=== PATIENT | female | born 2000 | race African-American/Black ===

== ENCOUNTER 2020-02-12 08:15 | Inpatient (IN) | payer OTHER ==
[2020-02-12 11:03] LABS: POC NITRAZINE NEG
[2020-02-12] MEDS ORDERED: AMPICILLIN - 2 GM in SODIUM CHLORIDE 100 ML IVPB ONE (12:00)
[2020-02-12] MEDS ORDERED: AMPICILLIN SODIUM 2 GM VIAL ONE (12:15)
[2020-02-12] MEDS ORDERED: PROMETHAZINE HCL 25 MG/1 ML VIAL IVPB ONE ×2 (12:30→14:29)
[2020-02-12] MEDS ORDERED: BUTORPHANOL TARTRATE 1 MG/ML VIAL IVPB ONE ×2 (12:30→14:29)
[2020-02-12 12:53] VITALS: BMI 31.1
[2020-02-12] MEDS ORDERED: PROMETHAZINE HCL 25 MG/1 ML VIAL ONE (12:56)
[2020-02-12] MEDS ORDERED: BUTORPHANOL TARTRATE 1 MG/ML VIAL ONE ×2 (12:56)
--- NOTE | 2020-02-12 14:17 | HP ---
Past Medical History - Primary Care Physician PCP:: Evaristo Moss - Admission Chief Complaint: Lower abdominal pain History of Present Illness: 19 yo , AUDELIA 02/09/20, EGA 40 weeks 3 days, presented in early labor. care at [facility] History Source: Patient Limitations to Obtaining History: No Limitations - Past Medical History ...: 1 ...Para: 0 ...Term: 0 ...: 0 ...Spon : 0 ...Induced : 0 ...Living Children: 0 ...Multiple Gestation: 0 ...LMP: 05/05/19 ... Weeks Gestation by Dates: 40.3 ...EDC by Dates: 02/09/20 ...EDC by Sono: 02/10/20 - Past Surgical History Past Surgical History: Yes: None Hx Myomectomy: No Hx Transabdominal Cerclage: No - Smoking History Smoking history: Never smoked Have you smoked in the past 12 months: No - Alcohol/Substance Use Hx Alcohol Use: No - Social History Do you think of yourself as: Straight/Heterosexual History of Recent Travel: No Home Medications - Allergies Allergies/Adverse Reactions: Allergies Allergy/AdvReac Type Severity Reaction Status Date / Time No Known Drug Allergies Allergy Verified 02/07/20 13:52 shrimp Allergy Hives Verified 02/07/20 13:52 - Home Medications Home Medications: Ambulatory Orders Prenat 115/Iron Fum/Folic/Dss [ 19 Tablet] 1 tab PO DAILY 02/07/20 Family Medical History Family History: Denies Review of Systems - Review of Systems Constitutional: reports: No Symptoms Eyes: reports: No Symptoms HENT: reports: No Symptoms Neck: reports: No Symptoms Cardiovascular: reports: No Symptoms Respiratory: reports: No Symptoms Gastrointestinal: reports: No Symptoms Genitourinary: reports: No Symptoms Breasts: reports: No Symptoms Reported Musculoskeletal: reports: No Symptoms Integumentary: reports: No Symptoms Neurological: reports: No Symptoms Endocrine: reports: No Symptoms Hematology/Lymphatic: reports: No Symptoms Psychiatric: reports: No Symptoms Physical Exam - Maternity Vital Signs: Vital Signs Temperature 98.3 F 02/12/20 12:44 Pulse Rate 76 02/12/20 12:44 Respiratory Rate 18 02/12/20 12:44 Blood Pressure 121/78 02/12/20 12:44 O2 Sat by Pulse Oximetry (%) Constitutional: Yes: Well Nourished Eyes: Yes: WNL HENT: Yes: WNL Neck: Yes: WNL Cardiovascular: Yes: WNL Breast(s): Yes: WNL - Abdominal Exam/OB Fundal Height: 39 Number of Fetuses: Single Presentation: Vertex Contractions: Yes Regularity: Regular Intensity: Mild/Mod Monitor Mode: External Heart Rate (range): 140 Category: I Accelerations: Uniform Decelerations: None - Vaginal Exam/OB Vaginal Bleeding: No Dilatation (cm): 2 Effacement (%): 100 Amniotic Membrane Status: Intact Presentation: Vertex/Position Station: -2 - Physical Exam Musculoskeletal: Yes: WNL Extremities: Yes: WNL Edema: No Integumentary: Yes: WNL ...Motor Strength: WNL Psychiatric: Yes: WNL Hemorrhage Risk Assessment - Risk Factors Medium Risk Factors: Yes: None High Risk Factors: Yes: None Risk Score: 1 Risk Level: Medium Risk Problem List - Problems (1) 40 weeks gestation of Code(s): Z3A.40 - 40 WEEKS GESTATION OF Assessment/Plan Full term gestation in early labor Admit L ad D for management.
[2020-02-12] MEDS ORDERED: LACTATED RINGERS SOLUTION 1,000 ML/1,000 ML INFUS.BAG IV SCH (14:30)
[2020-02-12 14:53] LABS: BASO % 0.4 % (0-2.0); EOS % 0.1 % (0-4.5); HEMATOCRIT 36.2 % (32.4-45.2); HEMOGLOBIN 12.1 GM/dL (10.7-15.3); LYMPH % 12.9 % (8-40); MCH 30.8 pg (25.7-33.7); MCHC 33.4 g/dl (32.0-36.0); MEAN CELL VOLUME 92.3 fl (80-96); MEAN PLT VOLUME 10.6 fl (7.5-11.1); MONO % 8.4 % (3.8-10.2); NEUT % 78.2 % (42.8-82.8); PLATELET COUNT 221 K/MM3 (134-434); RBC 3.92 M/mm3 (3.60-5.2); RDW 15.5 % (11.6-15.6); WHITE BLOOD COUNT 10.5 K/mm3 (4.0-10.0)
[2020-02-12 14:58] LABS: INR 0.84 (0.83-1.09); PROTHROMBIN TIME (PATIENT) 9.9 SEC (9.7-13.0)
[2020-02-12 15:01] LABS: ACTIVATED PTT 29.8 SECONDS (25.2-36.5)
[2020-02-12] MEDS ORDERED: OXYTOCIN 30 UNITS in 0.9% NS 30 UNIT/500 ML INFUS.BAG IVPB ONE (15:09)
[2020-02-12] MEDS ORDERED: OXYTOCIN 30 UNITS in 0.9% NS 30 UNIT/500 ML INFUS.BAG IVPB SCH (15:10)
[2020-02-12 15:14] LABS: BLOOD UREA NITROGEN 3.8 mg/dL (7-18); CALCIUM 9.1 mg/dL (8.5-10.1); CREATININE 0.7 mg/dL (0.55-1.3); POTASSIUM 3.8 mmol/L (3.5-5.1)
[2020-02-12] MEDS ORDERED: AMPICILLIN SODIUM 1 GM VIAL ONE ×2 (16:07→20:29)
[2020-02-12] MEDS: AMPICILLIN - 1 GM in SODIUM CHLORIDE 100 ML IVPB SCH ×2 (16:15→20:26)
[2020-02-12] MEDS ORDERED: PCA PUMP NR ONE (19:22)
[2020-02-12] MEDS ORDERED: FENTANYL/BUPIVACAINE/NS/PF - PCEA - 50 ML DISP.SYRIN EP ONE (19:22)
[2020-02-12] MEDS ORDERED: BUPIVACAINE HCL/PF 0.25% (2.5MG/ML) 10 ML VIAL ONE (19:33)
[2020-02-12] MEDS ORDERED: SODIUM CHLORIDE 100 ML IVPB ONE (20:30)
[2020-02-12] MEDS ORDERED: NALOXONE HCL 0.4 MG/ML VIAL IVPUSH PRN (21:32)
[2020-02-12] MEDS ORDERED: FENTANYL/BUPIVACAINE/NS/PF - PCEA - 50 ML DISP.SYRIN EP SCH (21:45)
[2020-02-12] MEDS ORDERED: OXYTOCIN 20 UNITS in 0.9% NS 20 UNIT/1,000 ML INFUS.BAG IV ONE (23:23)
[2020-02-12] MEDS ORDERED: LIDOCAINE HCL 1% PRESERVATIVE FREE - 30ML VIAL ONE (23:23)
--- NOTE | 2020-02-13 00:41 | PN ---
Progress Note (short form) - Note Progress Note: Full term gestation in labor VSS, afebrile EFM - Baseline 140/min, moderate variability, accelerations, no decelerations Tocos - q2 in Pelvic - 4cm/100%/ -1/vertex Plan - Anticipate vaginal delivery For epidural analgesia. Problem List - Problems (1) 40 weeks gestation of Code(s): Z3A.40 - 40 WEEKS GESTATION OF
--- NOTE | 2020-02-13 00:45 | PN ---
Progress Note (short form) - Note Progress Note: Full term gestation in labor VSS. afebrile EFM - Baseline 140/min, moderate variability, accelerations. no decelerations Tocos q2min Pelvic - 9cm/100/0 Plan - Full term gestation approaching second stage labor Anticipate vaginal delivery. Problem List - Problems (1) 40 weeks gestation of Code(s): Z3A.40 - 40 WEEKS GESTATION OF
--- NOTE | 2020-02-13 00:48 | PN ---
Delivery - Delivery Vaginal Delivery: Spontaneous Type of Anesthesia: Local, Epidural Episiotomy/Laceration: Left Mediolateral EBL (cc): 300 Delivery, Single - Stages of Labor Date 1st Stage Initiatied: 02/12/20 Date 2nd Stage Initiated: 02/12/20 Date of Delivery: 02/12/20 Date Placenta Delivered: 02/12/20 - Condition of Gender: Male - 1 Minute Total Score: 9 5 Minutes Total Score: 9 - [place] Feeding Plan Initial Plan: Exclusive throughout hospitalization Benefits of Exclusively reinforced: Yes
[2020-02-13] MEDS ORDERED: BENZOCAINE 20% 57 GM BOTTLE TP PRN (01:35)
[2020-02-13] MEDS ORDERED: ACETAMINOPHEN 325 MG TABLET (FP) PO PRN (01:35)
[2020-02-13] MEDS ORDERED: METHYLERGONOVINE MALEATE 0.2 MG/1 ML AMP IM PRN (01:35)
[2020-02-13] MEDS ORDERED: BENZOCAINE 28 GM HEMORRHOIDAL OINTMENT TP PRN (01:35)
[2020-02-13] MEDS ORDERED: WITCH HAZEL 50% (TUCKS) 40 PAD/JAR PAD TP PRN (01:35)
[2020-02-13] MEDS ORDERED: IBUPROFEN 600 MG TABLET (FP) PO PRN (01:35)
[2020-02-13] MEDS ORDERED: OXYTOCIN 20 UNITS in 0.9% NS 20 UNIT/1,000 ML INFUS.BAG IV SCH (01:45)
[2020-02-13 03:00] LABS: CORD BASE EXCESS -10.2 mmol/L (0-2); CORD HCO3 18.1 mmHg (20-29); CORD PCO2 47.8 mmHg (30-78); CORD pH 7.196 (7.14-7.44)
[2020-02-13] MEDS: AMPICILLIN - 1 GM in SODIUM CHLORIDE 100 ML IVPB SCH (05:37)
[2020-02-13] MEDS: PRENATAL VITAMINS W/ FOLIC ACID TABLET (FP) PO SCH (10:23)
[2020-02-14 08:41] LABS: BASO % 0.4 % (0-2.0); EOS % 0.9 % (0-4.5); HEMATOCRIT 32.1 % (32.4-45.2); HEMOGLOBIN 10.2 GM/dL (10.7-15.3); LYMPH % 16.8 % (8-40); MCH 29.5 pg (25.7-33.7); MCHC 31.8 g/dl (32.0-36.0); MEAN CELL VOLUME 92.7 fl (80-96); MEAN PLT VOLUME 9.4 fl (7.5-11.1); MONO % 8.8 % (3.8-10.2); NEUT % 73.1 % (42.8-82.8); PLATELET COUNT 190 K/MM3 (134-434); RBC 3.46 M/mm3 (3.60-5.2); RDW 15.7 % (11.6-15.6); WHITE BLOOD COUNT 12.9 K/mm3 (4.0-10.0)
[2020-02-14] MEDS: PRENATAL VITAMINS W/ FOLIC ACID TABLET (FP) PO SCH (09:54)
[2020-02-14 13:55] VITALS: BP 122/84; PULSE 73; TEMP 98.5
--- NOTE | 2020-02-14 18:09 | PN ---
Post Progress Note Post Day: 1 Type of Delivery: Spon Vaginal Breech Vital Signs: Vital Signs Temperature 98.5 F 02/14/20 07:50 Pulse Rate 73 02/14/20 07:50 Respiratory Rate 18 02/14/20 07:50 Blood Pressure 122/84 02/14/20 07:50 O2 Sat by Pulse Oximetry (%) 100 02/12/20 23:20 Breast Exam: Yes: Soft Uterus: Yes: Fundus Firm, Fundus below umbilicus, Non-tender Abdomen/GI: Yes: Tolerating PO Lochia: Yes: Rubra Lochia, amount: Small Extremities: Yes: Calves non-tender Perineum: Yes: Episiotomy Activity: Ambulating - Labs Labs: CBC WBC 12.9 K/mm3 (4.0-10.0) H 02/14/20 07:28 RBC 3.46 M/mm3 (3.60-5.2) L 02/14/20 07:28 Hgb 10.2 GM/dL (10.7-15.3) L 02/14/20 07:28 Hct 32.1 % (32.4-45.2) L 02/14/20 07:28 MCV 92.7 fl (80-96) 02/14/20 07:28 MCH 29.5 pg (25.7-33.7) 02/14/20 07:28 MCHC 31.8 g/dl (32.0-36.0) L 02/14/20 07:28 RDW 15.7 % (11.6-15.6) H 02/14/20 07:28 Plt Count 190 K/MM3 (134-434) 02/14/20 07:28 MPV 9.4 fl (7.5-11.1) D 02/14/20 07:28 Absolute Neuts (auto) 9.4 K/mm3 (1.5-8.0) H 02/14/20 07:28 Neutrophils % 73.1 % (42.8-82.8) 02/14/20 07:28 Lymphocytes % 16.8 % (8-40) D 02/14/20 07:28 Monocytes % 8.8 % (3.8-10.2) 02/14/20 07:28 Eosinophils % 0.9 % (0-4.5) D 02/14/20 07:28 Basophils % 0.4 % (0-2.0) 02/14/20 07:28 Nucleated RBC % 0 % (0-0) 02/14/20 07:28 Problem List - Problems (1) 40 weeks gestation of Code(s): Z3A.40 - 40 WEEKS GESTATION OF Assessment/Plan S/P , ppd # 1, stable Discharge home.
--- NOTE | 2020-02-14 18:14 | DS ---
Physical Exam-PAID SEARCH ANALYST Vital Signs: Vital Signs Temperature 98.5 F 02/14/20 07:50 Pulse Rate 73 02/14/20 07:50 Respiratory Rate 18 02/14/20 07:50 Blood Pressure 122/84 02/14/20 07:50 O2 Sat by Pulse Oximetry (%) 100 02/12/20 23:20 Constitutional: Yes: Well Nourished Eyes: Yes: WNL HENT: Yes: WNL Neck: Yes: WNL Cardiovascular: Yes: WNL Respiratory: Yes: WNL Gastrointestinal: Yes: WNL ...Rectal Exam: Yes: WNL Renal/: Yes: WNL Pelvis: Yes: WNL External Genitalia: Yes: Normal Internal Exam Deferred: Yes Vaginal Exam: Yes: Normal Cervix: Yes: Normal Uterus: Yes: Normal Adnexa: Normal: Bilateral ....Post : Yes: Uterus firm, Uterus non-tender, Slight lochia rubra Breast(s): Yes: WNL Musculoskeletal: Yes: WNL Extremities: Yes: WNL Edema: No Integumentary: Yes: WNL Wound/Incision: Yes: Clean/Dry Neurological: Yes: WNL ...Motor Strength: WNL Psychiatric: Yes: WNL Labs: CBC, BMP 02/14/20 07:28 02/12/20 12:30 Delivery - Delivery Vaginal Delivery: Spontaneous Type of Anesthesia: Local, Epidural Episiotomy/Laceration: Left Mediolateral, 2nd degree EBL (cc): 300 Delivery, Single - Stages of Labor Date 1st Stage Initiatied: 02/12/20 Time 1st Stage Initiated: 09:00 Date 2nd Stage Initiated: 02/12/20 Time 2nd Stage Initiated: 23:30 Date of Delivery: 02/12/20 Time of Delivery: 23:48 Time Placenta Delivered: 23:55 Placenta: Yes: Spontaneous - Condition of Bias Machine Operator/Distributor Of Directories Present: No Infant Gender: Male Weight: 2.892 kg Position: Right, OA Total Hours ROM (Hrs/Mins): 48 min - 1 Minute Total Score: 9 5 Minutes Total Score: 9 - Feeding Plan Initial Plan: Exclusive throughout hospitalization Benefits of Exclusively reinforced: Yes Discharge Summary Problems reviewed: Yes Reason For Visit: LABOR ADMISSION Current Active Problems 40 weeks gestation of (Acute) Condition: Stable - Instructions Disposition: HOME - Home Medications Comprehensive Discharge Medication List: Ambulatory Orders Prenat 115/Iron Fum/Folic/Dss [ 19 Tablet] 1 tab PO DAILY 02/07/20
[2020-02-14] MEDS ORDERED: SENNOSIDES/DOCUSATE COMBO (SENNA PLUS) TABLET (UD) PO PRN (22:00)
== END 2020-02-14 19:30 | disposition home or self-care (01) | DRG 560 ==
LOC: JDEL 08:15 → JLDR 11:48 → J3W 02-13 03:02
PROVIDERS: ADMIT Obstetrics & Gynecology; ATTEND Obstetrics & Gynecology
PROC: 10E0XZZ Delivery of Products of Conception, External Approach (ICD-10-PCS; principal; 2020-02-12)
PROC: 0W8NXZZ Division of Female Perineum, External Approach (ICD-10-PCS; 2020-02-12)
PROC: 0KQM0ZZ Repair Perineum Muscle, Open Approach (ICD-10-PCS; 2020-02-12)
DX: O48.0 Post-term pregnancy (principal); O70.1 Second degree perineal laceration during delivery; Z3A.40 40 weeks gestation of pregnancy; Z37.0 Single live birth
CPT/HCPCS: 36415; 36600; 59025; 59409; 80048; 82803; 83986-QW; 85025; 85610; 85730; 86780; 86850; 86900; 86901; 87389; U0003